=== PATIENT | female | born 1995 | race Two or more races ===

== ENCOUNTER 2017-05-10 10:54 | Emergency (ER) | payer MEDICAID ==
[~2017-05-10] VITALS: Ht 160 cm; Wt 78.5 kg
[2017-05-10] MEDS ORDERED: SODIUM CHLORIDE 0.9% 1,000 ML IVB ONE (11:30)
[2017-05-10 12:13] LABS: Basophils # (auto) 0 uL; Basophils % (auto) 0.3 % (0.0-2.0); CONDITION Y; Eosinophils # (auto) 0 uL; Eosinophils % (auto) 0.2 % (0.0-7.0); Hematocrit 43.9 % (36.0-46.0); Hemoglobin 14.9 g/dL (12.2-16.2); Lymphocytes # (auto) 1.3 uL; Lymphocytes % (auto) 23.4 % (10.0-50.0); Mean Corpuscular Hemoglobin 30.7 pg (28.0-32.0); Mean Corpuscular Volume 90.4 fL (80.0-100.0); Mean Platelet Volume 8.2 fL (7.4-10.4); Monocytes # (auto) 0.3 uL; Monocytes % (auto) 5.4 % (0.0-12.0); Neutrophils % (auto) 70.7 % (37.0-80.0); Platelet Count (auto) 304 10^3/uL (140-450); Red Cell Distribution Width 13.7 % (11.6-16.0); White Blood Cell 5.7 10^3/uL (4.4-10.8)
[2017-05-10 12:32] LABS: BUN/Creatinine Ratio 10.1; Bilirubin, Total 0.5 mg/dL (0.2-1.0); Calcium 9.9 mg/dL (8.5-10.1); INR 0.98 (0.9-1.15); Potassium 3.6 mmol/L (3.5-5.1); Prothrombin Time 10.7 sec (9.37-12.3); Total Protein 8.7 g/dL (6.4-8.2)
[2017-05-10 13:25] LABS: Urine Bilirubin Negative (Negative); Urine Blood TRACE /uL (Negative); Urine Color Yellow (Yellow); Urine Glucose Normal (Normal); Urine Ketone 3+ (Negative); Urine Mucus FEW (None Seen); Urine Nitrite Negative (Negative); Urine RBC 2 /hpf (0 - 4); Urine Squamous Epithelial Cell FEW /hpf (<5); Urine Urobilinogen Normal (Negative); Urine pH 5.5 (5.0-8.0)
[2017-05-10 15:28] VITALS: BP 121/77
== END 2017-05-10 17:20 | disposition home or self-care (01) ==
LOC: ER 10:54
DX: N83.202 Unspecified ovarian cyst, left side (principal); R07.9 Chest pain, unspecified
CPT/HCPCS: 36415; 74176; 76856; 80053; 81001; 82150; 83690; 85025; 85610; 85730; 87493; 96360; 99285; J7030

== ENCOUNTER 2017-05-11 18:25 | Emergency (ER) | payer MEDICAID ==
[~2017-05-11] VITALS: Ht 160 cm; Wt 78.5 kg
[2017-05-11 19:04] LABS: Basophils # (auto) 0 uL; Basophils % (auto) 0.2 % (0.0-2.0); CONDITION Y; Eosinophils # (auto) 0 uL; Eosinophils % (auto) 0.2 % (0.0-7.0); Hematocrit 41.9 % (36.0-46.0); Hemoglobin 14.2 g/dL (12.2-16.2); Mean Corpuscular Hemoglobin 31.1 pg (28.0-32.0); Mean Corpuscular Volume 91.4 fL (80.0-100.0); Mean Platelet Volume 8.2 fL (7.4-10.4); Monocytes # (auto) 0.3 uL; Monocytes % (auto) 4.3 % (0.0-12.0); Neutrophils # (auto) 4.8 uL; Neutrophils % (auto) 67.3 % (37.0-80.0); Platelet Count (auto) 338 10^3/uL (140-450); Red Cell Distribution Width 14.2 % (11.6-16.0); White Blood Cell 7.1 10^3/uL (4.4-10.8)
[2017-05-11 19:26] LABS: Albumin 3.8 g/dL (3.4-5.0); BUN/Creatinine Ratio 5.3; Bilirubin, Total 0.4 mg/dL (0.2-1.0); Calcium 9.4 mg/dL (8.5-10.1); Potassium 3.5 mmol/L (3.5-5.1); Total Protein 8.3 g/dL (6.4-8.2)
[2017-05-11 21:47] LABS: Urine Bilirubin Negative (Negative); Urine Blood Negative /uL (Negative); Urine Color Yellow (Yellow); Urine Glucose Normal (Normal); Urine Ketone 2+ (Negative); Urine Mucus FEW (None Seen); Urine Nitrite Negative (Negative); Urine RBC 6 /hpf (0 - 4); Urine Squamous Epithelial Cell FEW /hpf (<5); Urine Urobilinogen Normal (Negative)
[2017-05-12] MEDS ORDERED: KETOROLAC TROMETH 30 MG/ML 1ML VIAL IV ONE (02:00)
[2017-05-12] MEDS ORDERED: FLUCONAZOLE 100 MG TAB PO ONE (02:00)
[2017-05-12] MEDS ORDERED: KETOROLAC TROMETH 60MG/2ML VIAL IM ONE (02:00)
[2017-05-12] MEDS ORDERED: ONDANSETRON ODT 4 MG TAB PO ONE (02:00)
[2017-05-12 03:18] VITALS: BP 138/54
== END 2017-05-12 03:39 | disposition home or self-care (01) ==
LOC: ER 18:25
DX: N83.202 Unspecified ovarian cyst, left side (principal); N76.0 Acute vaginitis
CPT/HCPCS: 36415; 80053; 81001; 81025; 85025; 96374; 99284; Q0162; J1885

== ENCOUNTER 2023-10-16 12:02 | Emergency (ER) | payer MEDICAID ==
[~2023-10-16] VITALS: Ht 165.1 cm; Wt 87.4 kg
[2023-10-16 13:05] VITALS: BP 114/90; PULSE 110; RESP 20; TEMP 98.2; O2SAT 98
[2023-10-16] MEDS ORDERED: AZIT500T66 PO (14:00)
[2023-10-16] MEDS ORDERED: BENZ200C64 PO (14:00)
[2023-10-16] MEDS ORDERED: NIRM1TAB5 PO (14:00)
== END 2023-10-16 14:00 | disposition home or self-care (01) ==
LOC: ER 12:02
DX: U07.1 COVID-19 (principal); J02.9 Acute pharyngitis, unspecified; J20.9 Acute bronchitis, unspecified
CPT/HCPCS: 71045